=== PATIENT | female | born 1985 | race Caucasian/White ===

== ENCOUNTER 2019-04-28 11:56 | Outpatient (CLI) | payer OTHER ==
[2019-04-28 12:36] LABS: BASOPHILS % (AUTO) 0.5 %; EOSINOPHILS # (AUTO) 0.1 10^3/uL (0.0-0.7); EOSINOPHILS % (AUTO) 1.6 %; HGB - HEMOGLOBIN 13.9 g/dL (12.0-16.0); LYMPHOCYTES # (AUTO) 2.2 10^3/uL (1.5-3.5); LYMPHOCYTES % (AUTO) 27.2 %; MEAN CORPUSCULAR HEMOGLOBIN 29.3 pg (27.0-31.0); MEAN CORPUSCULAR HGB CONC 33.6 g/dL (32.0-36.0); MEAN CORPUSCULAR VOLUME 87.3 fL (81.0-99.0); MEAN PLATELET VOLUME 9.5 fL (7.9-10.8); MONOCYTES # (AUTO) 0.6 10^3/uL (0.0-1.0); MONOCYTES % (AUTO) 7.3 %; NEUTROPHILS # (AUTO) 5.1 10^3/uL (1.5-6.6); NEUTROPHILS % (AUTO) 62.8 %; PLT - PLATELET COUNT 278 10^3/uL (130-450); RED BLOOD COUNT 4.74 10^6/uL (4.20-5.40); RED CELL DISTRIBUTION WIDTH 12.7 % (12.0-15.0); WHITE BLOOD COUNT 8.1 x10^3/uL (4.8-10.8)
== END 2019-04-28 11:57 | disposition home or self-care (01) ==
LOC: LAB 11:56
PROVIDERS: ATTEND Obstetrics & Gynecology
DX: C18.9 Malignant neoplasm of colon, unspecified (principal); Z01.812 Encounter for preprocedural laboratory examination
CPT/HCPCS: 36415; 85025; 86850; 86900; 86901

== ENCOUNTER 2019-04-30 05:49 | Inpatient (IN) | payer OTHER ==
[2019-04-30] MEDS ORDERED: CEFAZOLIN SODIUM IN 0.9 % NACL 2 GM/100 ML BAG IV ONE (06:24)
[2019-04-30] MEDS ORDERED: ACETAMINOPHEN 1,000 MG/100 ML 100 ML IV ONE (06:25)
[2019-04-30 06:52] LABS: HCG UR QUAL NEGATIVE
[2019-04-30] MEDS ORDERED: SCOPOLAMINE PATCH TOP ONE (07:01)
[2019-04-30] MEDS ORDERED: LACTATED RINGERS 1,000 ML IV ONE ×2 (07:09→08:49)
--- NOTE | 2019-04-30 07:15 | ANESTHESIA ---
Pre-Anesthesia VS, & Labs - Diagnosis Bedoya Syndrome - Procedure TLH w/B salpingectomies, cystoscopy Vital Signs: Temp Pulse Resp BP Pulse Ox 36.2 C L 74 18 110/78 100 04/30/19 06:50 04/30/19 06:50 04/30/19 06:50 04/30/19 06:50 04/30/19 06:50 Height 5 ft 7 in Weight (kg) 97.3 kg - NPO >8 hours - Is Patient ?: No - Lab Results Lab results reviewed: Yes Home Medications and Allergies Home Medications: Ambulatory Orders SUMAtriptan [Imitrex] 25 mg PO PRN 04/06/19 SUMAtriptan [Imitrex] 25 mg PO PRN 04/06/19 Allergies/Adverse Reactions: Allergies Allergy/AdvReac Type Severity Reaction Status Date / Time latex Allergy Anaphylaxis Verified 04/06/19 09:40 Anes History & Medical History - Anesthetic History Anesthesia Complications: reports: Post-Operative Nausea/Vomiting (pre-op scope patch ordered) Family history of Anesthesia Complications: Denies Family history of Malignant Hyperthermia: Denies - Medical History Cardiovascular: reports: None Pulmonary: reports: None Gastrointestinal: reports: Other Urinary: reports: None Musculoskeletal: reports: None Endocrine/Autoimmune: reports: None Skin: reports: None - Surgical History Gynecologic: section, Endometrial ablation, Breast reduction Orthopedic: Other Exam General: Alert, Oriented x3, Cooperative Dental: WNL, TMJ Mouth Openin Fingerbreadth Neck Mobility: Normal Mallampati classification: II Thyromental Distance: 4-6 cm Respiratory: Lungs clear, Normal breath sounds, No respiratory distress, No accessory muscle use Cardiovascular: Regular rate Neurological: Normal speech Mental/Cognitive Status: Alert/Oriented X3, Normal for patient Cognitive Status: Within normal limits Plan Anesthesia Type: General Consent for Procedure(s) Verified and Reviewed: Yes Code Status: Attempt Resuscitation ASA classification: 1-Healthy patient Is this case an emergency?: No
[2019-04-30] MEDS ORDERED: BUPIVACAINE 0.25% PF 30 ML VIAL ONE (07:20)
[2019-04-30] MEDS ORDERED: BUPIVACAINE 0.25% PF 30 ML VIAL SUBQ ONE ×2 (08:41)
[2019-04-30] MEDS ORDERED: ONDANSETRON 4 MG/2 ML VIAL IVP PRN (10:53)
[2019-04-30] MEDS: HYDROmorphone 1 MG/ML CARPUJECT ONE ×3 (10:57→11:12)
--- NOTE | 2019-04-30 10:58 | OPERATIVE REPORT ---
Operative Report - General Admit Date: 04/30/19 Procedure Date: 04/30/19 Planned Procedure: total laparoscopic hysterectomy, bilateral salpingectomy, cystoscopy Pre-Op Diagnosis: Bedoya Syndrome Procedure Performed: same as above Post Op Diagnosis: same as above - Procedure Note Primary Surgeon: Marika Acuña Secondary Surgeon: Abhinav Syed Anesthesia Provider: Jim Layne Anesthesia Technique: General ET tube Pathology: uterus with cervix and bilateral fallopian tubes, stitch at 12 o'clock on cervix IV Fluids (mL): 800 Estimated Blood Loss (mL): 75 Urine Output (mL): 300 Indications: Bedoya Syndrome, risk-reducing hysterectomy/salpingectomy after childbearing completed Findings: Normal liver edge and gallbladder. Normal bilateral ovaries and fallopian tubes. Uterus with cervix and bilateral fallopian tubes removed. Cystoscopy with intact bladder mucosa and brisk bilateral ureteral jets. Complications: None - Other Other Information/Narrative: After informed consent was obtained, the patient was taken to the operating room, where general anesthesia was administered without difficulty. Exam under anesthesia performed, revealing a small anteverted uterus and no mass. The patient was prepped and draped in normal sterile fashion in the dorsal lithotomy position. Surgical time out was performed. A speculum was placed in the vagina and the anterior cervix was grasped with a single tooth tenaculum. A single interrupted suture of 0 vicryl was placed in the anterior cervix. The uterus sounded to 4 cm; on multiple attempts, unable to pass sound or dilator through internal os, likely secondary to patient's prior ablation. The [employer] Supervisor uterine manipulator was passed into the cervix and the uterine balloon inflated within the cervix to 5 ml. The colpotomy cup was advanced around the cervix and locked into place after securing to the cervix with the previously placed suture. Baugh catheter was placed into the bladder, draining clear yellow urine. The pneumo-occluder was inflated with 60 mL of air. Attention was directed to the abdomen. After confirming a gastric tube was placed and the bed was flat, 0.25% marcaine was injected at the umbilicus and a 5mm port was inserted through a horizontal skin incision under direct visualization with the laparoscope. The abdomen was partially insufflated with <5mmHg initial insufflation pressure which was increased to achieve complete pneumoperitoneum at 15 mmHg. A survey of the abdominal cavity revealed no bowel injury under the entry site, normal liver edge and gallbladder. The uterus was noted to have a small purple vesicle on the right fundus consistent with endometriosis implant. Normal fallopian tubes were seen. The bilateral ovaries were normal. The ureter was identified and noted to vermiculate on each side. Two lateral 5 mm ports were then placed under direct visualization, one on each side. The left fallopian tube was grasped at the fimbria and elevated; the Ligasure energy device was used to separate the tube from the mesosalpinx to the level of the cornua, were it was transected. The tube was then placed anterior to the uterus. The same procedure was repeated on the right. The right cornua was gently grasped and elevated; the Ligasure energy device was used to divide the round ligament. The anterior leaf of the broad ligament was dissected down and carried anteriorly over the lower uterine segment along the vesicouterine peritoneum to create a bladder flap. This procedure was repeated on the left. Some bleeding was noted on the right at the level of the utero- sacral ligament, this was secured with the Ligasure. The bilateral uterine arteries were then skeletonized and cauterized with the Ligasure. The bladder flap was developed with judicious use of blunt dissection and cautery. Several straight bites along the cervix were taken with the Ligasure on each side to allow the pedicles and ureters to fall away laterally. The colpotomy ring was identified and isolated circumferentially. The bipolar L hook was used to create a colpotomy circumferentially along the top edge of the colpotomy ring. The manipulator was removed along with the uterus and both fallopian tubes. The cuff was closed with a series of figure of eight sutures of 0 vicryl. The vaginal cuff was irrigated and no bleeding was noted. Attention was returned to the abdomen, which was again insufflated to 15mmHg pneumoperitoneum. The suction colorectal surgeon was used to clean clot out of the pelvis. The pressure was taken down to 8 mmHg, and no bleeding was noted from pedicles or areas of dissection. Ports were then removed under laparoscopic visu alization. The abdomen was decompressed. 4-0 monocryl single interrupted sutures were placed in each port site. Dermabond skin adhesive was placed over each port site. Attention was turned to the cystoscopy. The baugh catheter was removed and the 70 degree cystoscope set up and white balanced. Fluids were run through and the cystoscope was gently advanced through the urethra into the bladder. Bilateral ureteral orifices were identified and brisk ureteral jets were visualized bilaterally. Survey of the bladder mucosa revealed no evidence of perforation or stitch from the surgery. The bladder was drained and the cystoscope was removed. Vaginal vault was cleared of all instruments. Lap, instrument, and needle counts were correct x 2. RF scan was performed with no retained RF materials. Pt was awakened from anesthesia and transferred to PACU in stable condition.
[2019-04-30] MEDS: fentaNYL 100 MCG/2 ML VIAL ONE ×2 (11:19→11:28)
[2019-04-30] MEDS ORDERED: ONDANSETRON 4 MG/2 ML VIAL ONE (11:35)
[2019-04-30] MEDS ORDERED: HYDROmorphone 0.5 MG/0.5 ML SYRINGE ONE ×2 (11:36→11:57)
[2019-04-30] MEDS: LACTATED RINGERS 1,000 ML IV SCH ×2 (12:16→21:39)
[2019-04-30] MEDS: IBUPROFEN 800 MG TABLET PO SCH ×2 (12:16→19:44)
[2019-04-30] MEDS: oxyCODONE 5 MG TABLET PO PRN ×3 (13:06→21:41)
[2019-04-30] MEDS ORDERED: MORPHINE 10 MG/ML VIAL IVP PRN (13:30)
[2019-04-30] MEDS: BENZOCAINE/MENTHOL LOZENGE MM PRN ×3 (14:27→21:41)
[2019-04-30] MEDS: ACETAMINOPHEN 500 MG TABLET PO SCH ×2 (14:29→19:44)
[2019-04-30] MEDS: DOCUSATE SODIUM 100 MG CAPSULE PO SCH (20:07)
[2019-05-01] MEDS: ACETAMINOPHEN 500 MG TABLET PO SCH ×2 (01:46→08:06)
[2019-05-01] MEDS: BENZOCAINE/MENTHOL LOZENGE MM PRN ×2 (01:46→08:06)
[2019-05-01] MEDS: oxyCODONE 5 MG TABLET PO PRN ×2 (01:51→08:06)
[2019-05-01] MEDS: IBUPROFEN 800 MG TABLET PO SCH ×2 (03:40→11:12)
[2019-05-01 05:15] LABS: BASOPHILS % (AUTO) 0.2 %; EOSINOPHILS # (AUTO) 0.1 10^3/uL (0.0-0.7); EOSINOPHILS % (AUTO) 1.1 %; HGB - HEMOGLOBIN 11.1 g/dL (12.0-16.0); LYMPHOCYTES # (AUTO) 2.6 10^3/uL (1.5-3.5); LYMPHOCYTES % (AUTO) 28.1 %; MEAN CORPUSCULAR HEMOGLOBIN 28.8 pg (27.0-31.0); MEAN CORPUSCULAR HGB CONC 32.3 g/dL (32.0-36.0); MEAN CORPUSCULAR VOLUME 89.1 fL (81.0-99.0); MEAN PLATELET VOLUME 9.8 fL (7.9-10.8); MONOCYTES # (AUTO) 0.7 10^3/uL (0.0-1.0); NEUTROPHILS # (AUTO) 5.9 10^3/uL (1.5-6.6); NEUTROPHILS % (AUTO) 63.2 %; PLT - PLATELET COUNT 245 10^3/uL (130-450); RED BLOOD COUNT 3.86 10^6/uL (4.20-5.40); WHITE BLOOD COUNT 9.3 x10^3/uL (4.8-10.8)
--- NOTE | 2019-05-01 07:11 | PROVIDER PROGRESS NOTE ---
Subjective - Prog Note Date Prog Note Date: 05/01/19 Prog Note Time: 07:08 - Subjective Pt reports feeling: Improved Subjective: Doing well with no acute complaints. Reports pain currently 5/10 but responds well to medication. No vaginal bleeding or discharge. Ambulating without difficulty. Voiding spontaneously. Passing flatus, no BM yet. Tolerated soft diet only yesterday due to throat pain; improving with cepacol and hungry this AM. No n/v. Using ICS, denies any cough, SOB, or CP. No other acute concerns. Objective - Vital Signs/Intake & Output Vital Signs: Vital Signs x48h Temp Pulse Resp BP Pulse Ox 05/01/19 04:13 98.2 F 57 L 16 96/49 L 95 05/01/19 00:45 98.2 F 71 16 98/57 L 96 Intake & Output: Intake & Output 04/28/19 04/29/19 04/30/19 05/01/19 23:59 23:59 23:59 23:59 Intake Total 3540 500 Output Total 2375 1700 Balance 1165 -1200 - Objective General Appearance: positive: No acute distress, Alert Abdomen: positive: Non-tender, Other (soft, nondistended. Incision sites c/d/i, covered with skin adhesive.) Skin: positive: Color nml, No rash Extremities: positive: Non-tender Neurologic/Psychiatric: positive: Oriented x3 - Lab Results Fish Bones: 05/01/19 04:37 Other Labs: Lab Results x24hrs 05/01/19 04/30/19 04/30/19 Range/Units 04:37 10:48 09:00 WBC 9.3 (4.8-10.8) x10^3/uL RBC 3.86 L (4.20-5.40) 10^6/uL Hgb 11.1 L (12.0-16.0) g/dL Hct 34.4 L (37.0-47.0) % MCV 89.1 (81.0-99.0) fL MCH 28.8 (27.0-31.0) pg MCHC 32.3 (32.0-36.0) g/dL RDW 13.0 (12.0-15.0) % Plt Count 245 (130-450) 10^3/uL MPV 9.8 (7.9-10.8) fL Neut # (Auto) 5.9 (1.5-6.6) 10^3/uL Lymph # (Auto) 2.6 (1.5-3.5) 10^3/uL Cook # (Auto) 0.7 (0.0-1.0) 10^3/uL Eos # (Auto) 0.1 (0.0-0.7) 10^3/uL Baso # (Auto) 0.0 (0.0-0.1) 10^3/uL Absolute Nucleated RBC 0.00 x10^3/uL Nucleated RBC % 0.0 /100WBC Blood Type O POSITIVE Blood Type Recheck O POSITIVE Antibody Screen NEGATIVE Assessment/Plan - Problem List (1) Absence of both cervix and uterus, acquired Impression: 33 yo POD#1 s/p TLH/BS/cysto recovering well. VS wnl, UOP 2.4 ml/kg/h overnight. Exam benign. Hct 34 postop. -Encouraged increased oral intake this AM -Dispo. Home this AM after breakfast. Rvwd recovery plan, follow up plan and reasons to seek urgent care.
--- NOTE | 2019-05-01 07:15 | DISCHARGE SUMMARY ---
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 - CONSULTS | PROCEDURES Consultations: Anesthesia Procedures: 1. Total laparoscopic hysterectomy with bilateral salpingectomy 2. Cystourethroscopy - HOSPITAL COURSE Hospital Course: Admitted for planned surgery and underwent uncomplicated total laparoscopic hysterectomy with bilateral salpingectomy and cystoscopy. Cunningham catheter removed post-op day #0 and pt voided spontaneously. At time of discharge, she was ambulating, tolerating regular diet and pain was well controlled with oral medication. She was discharged home with close interval follow up. - ALLERGIES Allergies/Adverse Reactions: Allergies Allergy/AdvReac Type Severity Reaction Status Date / Time latex Allergy Anaphylaxis Verified 04/06/19 09:40 - MEDICATIONS Home Medications: Ambulatory Orders Medication Instructions Recorded Confirmed SUMAtriptan [Imitrex] 25 mg PO PRN 04/06/19 Home Medications Other | Comments: 1. Ibuprofen 800 mg 1 tab by mouth every 8 hours 2. Tylenol 325 mg 3 tabs by mouth every 6 hours 3. Roxicodone 5 mg 1-2 tabs by mouth every 4 hours as needed for pain 4. Surfak 240 mg 1 cap by mouth twice daily - PHYSICAL EXAM AT DISCHARGE General Appearance: positive: No acute distress (See progress note for full exam day of discharge) - LABS Result Diagrams: 05/01/19 04:37 - QUALITY (Female Hip Fx Only) Was patient sent home on osteoporosis medication?: No - FOLLOW UP Follow Up: Follow up at [facility] with Dr. Acuña as scheduled 19DEC - TIME SPENT Time Spent in Discharge (Minutes): 30"
[2019-05-01] MEDS: DOCUSATE SODIUM 100 MG CAPSULE PO SCH (08:06)
--- NOTE | 2019-05-01 10:40 | PROVIDER PROGRESS NOTE ---
Subjective - Prog Note Date Prog Note Date: 04/30/19 Prog Note Time: 10:30 Objective - Vital Signs/Intake & Output Vital Signs: Vital Signs x48h Temp Pulse Resp BP Pulse Ox 05/01/19 08:00 98.2 F 68 16 101/56 L 96 05/01/19 04:13 98.2 F 57 L 16 96/49 L 95 Intake & Output: Intake & Output 04/28/19 04/29/19 04/30/19 05/01/19 23:59 23:59 23:59 23:59 Intake Total 3540 1500 Output Total 2375 1700 Balance 1165 -200 - Lab Results Fish Bones: 05/01/19 04:37 Other Labs: Lab Results x24hrs 05/01/19 04/30/19 04/30/19 Range/Units 04:37 10:48 09:00 WBC 9.3 (4.8-10.8) x10^3/uL RBC 3.86 L (4.20-5.40) 10^6/uL Hgb 11.1 L (12.0-16.0) g/dL Hct 34.4 L (37.0-47.0) % MCV 89.1 (81.0-99.0) fL MCH 28.8 (27.0-31.0) pg MCHC 32.3 (32.0-36.0) g/dL RDW 13.0 (12.0-15.0) % Plt Count 245 (130-450) 10^3/uL MPV 9.8 (7.9-10.8) fL Neut # (Auto) 5.9 (1.5-6.6) 10^3/uL Lymph # (Auto) 2.6 (1.5-3.5) 10^3/uL Lares # (Auto) 0.7 (0.0-1.0) 10^3/uL Eos # (Auto) 0.1 (0.0-0.7) 10^3/uL Baso # (Auto) 0.0 (0.0-0.1) 10^3/uL Absolute Nucleated RBC 0.00 x10^3/uL Nucleated RBC % 0.0 /100WBC Blood Type O POSITIVE Blood Type Recheck O POSITIVE Antibody Screen NEGATIVE Assessment/Plan - Problem List (1) Absence of both cervix and uterus, acquired Impression: Note entered at request of medical records, not clinical note. "The patient will be discharged or transferred within 96 hours".
[2019-05-01] MEDS ORDERED: DEXAMETHASONE 4 MG/ML VIAL IVP ONE (11:26)
[2019-05-01] MEDS ORDERED: fentaNYL 100 MCG/2 ML VIAL IVP ONE (11:26)
[2019-05-01] MEDS ORDERED: ePHEDrine 50 MG/ML VIAL IVP ONE (11:26)
[2019-05-01] MEDS ORDERED: SEVOFLURANE 250 ML LIQUID INH ONE (11:26)
[2019-05-01] MEDS ORDERED: ROCURONIUM 50 MG/5 ML VIAL IVP ONE (11:26)
[2019-05-01] MEDS ORDERED: MIDAZOLAM 2 MG/2 ML VIAL IVP ONE (11:26)
[2019-05-01] MEDS ORDERED: NEOSTIGMINE 1 MG/1 ML 10 ML MDV IVP ONE (11:26)
[2019-05-01] MEDS ORDERED: PROPOFOL 200 MG/20 ML VIAL IVP ONE (11:26)
[2019-05-01] MEDS ORDERED: GLYCOPYRROLATE 1 MG/5 ML VIAL IVP ONE (11:26)
[2019-05-01] MEDS ORDERED: ONDANSETRON 4 MG/2 ML VIAL IVP ONE (11:26)
[2019-05-01 11:55] VITALS: BP 95/54
== END 2019-05-01 13:24 | disposition home or self-care (01) | DRG 941 ==
LOC: MS2 05:49
PROVIDERS: ADMIT Obstetrics & Gynecology; ATTEND Obstetrics & Gynecology
PROC: 0UT7FZZ Resection of Bilateral Fallopian Tubes, Via Natural or Artificial Opening With Percutaneous Endoscopic Assistance (ICD-10-PCS; 2019-04-30)
PROC: 0UT9FZZ Resection of Uterus, Via Natural or Artificial Opening With Percutaneous Endoscopic Assistance (ICD-10-PCS; principal; 2019-04-30 07:30)
DX: Z40.09 Encounter for prophylactic removal of other organ (principal); Z15.09 Genetic susceptibility to other malignant neoplasm; Z68.37 Body mass index [BMI] 37.0-37.9, adult; E66.01 Morbid (severe) obesity due to excess calories; F41.9 Anxiety disorder, unspecified; F32.9 Major depressive disorder, single episode, unspecified; F43.10 Post-traumatic stress disorder, unspecified
CPT/HCPCS: 36415; 81025; 85025; 86850; 86900; 86901

== ENCOUNTER 2020-09-08 09:43 | Emergency (ER) | payer OTHER ==
[2020-09-08 09:56] VITALS: BP 143/92
--- NOTE | 2020-09-08 11:02 | ED Physician Documentation ---
History of Present Illness - Stated complaint Stated Complaint: RT FOOT PX - Chief complaint Chief Complaint: Fever - History obtained from History obtained from: Patient - Additonal information Additional information: Patient comes emergency department chief complaint of painful lesion on sole of R foot. The patient states that about 2 days ago, she noticed what she thought was a bug bite on the sole of her foot right foot. She states it was somewhat painful and that she is not sure how she got it. She states that over the course of the last couple of days, the lesion has turned into a small, circular- appearing area of erythema with central clearing. She states she also noticed something similar developing on the dorsum of the same foot and then noticed the same sort of erythema on the other foot near the toes but without the distinct annular appearance. Patient denies any fevers or chills. No nausea or vomiting. No fatigue. The patient states that she has chronic lymphedema ever since having a hysterectomy done, and wears support hose every day. She states she very recently received some prescription strength support hose, which she wears [id number]. She has been outside gardening, but states that she was wearing her support hose, socks, and shoes while doing so. Patient does not feel that there has been anything in her shoes that has been poking the bottom of her foot. She denies any sense of anything being in her sock that could have been punctured the sole of her foot. The only time patient had her feet exposed was while sleeping at night. Patient is not on any medications. She is otherwise fairly healthy. No other complaints at this time. The patient states that she came here because she has been in physical therapy for another issue and when she went there she states that it was difficult to stand on the foot because it hurt. She states the physical therapist took a look and told her to come to the emergency department because she may have an infection. Patient states she has tried both hydrocortisone cream and antifungal creams and neither one seems to be improving the lesions at all. Review of Systems Ten Systems: 10 systems reviewed and negative Constitutional: reports: Reviewed and negative Eyes: reports: Reviewed and negative Ears: reports: Reviewed and negative Nose: reports: Reviewed and negative Throat: reports: Reviewed and negative Cardiac: reports: Reviewed and negative Respiratory: reports: Reviewed and negative GI: reports: Reviewed and negative : reports: Reviewed and negative Skin: reports: Lesions Musculoskeletal: reports: Reviewed and negative Neurologic: reports: Reviewed and negative Psychiatric: reports: Reviewed and negative Endocrine: reports: Reviewed and negative Immunocompromised: reports: Reviewed and negative PD PAST MEDICAL HISTORY - Past Medical History Cardiovascular: None Respiratory: None Endocrine/Autoimmune: None GI: Other : None HEENT: None Psych: Post traumatic stress disorder Musculoskeletal: None Derm: None Other Past Medical History: lymphedema bilateral lower leg - Past Surgical History Ortho: Other /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, Endometrial ablation, Hysterectomy, Breast reduction - Present Medications Home Medications: Ambulatory Orders Medication Instructions Recorded Confirmed SUMAtriptan [Imitrex] 25 mg PO DAILY PRN 04/06/19 09/08/20 - Allergies Allergies/Adverse Reactions: Allergies Allergy/AdvReac Type Severity Reaction Status Date / Time latex Allergy Anaphylaxis Verified 09/08/20 09:51 - Social History Does the pt smoke?: No Smoking Status: Never smoker Does the pt drink ETOH?: Yes Does the pt have substance abuse?: No PD ED PE NORMAL - Vitals Vital signs reviewed: Yes - General General: Alert and oriented X 3, No acute distress, Well developed/nourished - HEENT HEENT: Atraumatic, PERRL, EOMI, Moist mucous membranes - Neck Neck: Supple, no meningeal sign - Cardiac Cardiac: Strong equal pulses - Respiratory Respiratory: No respiratory distress - Derm Derm: Normal color, Warm and dry, Other (Approximately 12 mm, flat, nonblanching, deep red annular marking on plantar surface of right midfoot. No scaling. No induration or fluctuance. No obvious foreign body or nidus. No associated erythema. Mild tenderness. Similar single lesion on distal dorsi both feet, though L not annular.) - Extremities Extremities: No deformity, Other (Moderate nonpitting edema bilaterally.) - Neuro Neuro: Alert and oriented X 3 - Psych Psych: Normal mood, Normal affect Results - Vitals Vitals: Vital Signs - 24 hr 09/08/20 09:51 Temperature 37.3 C Heart Rate 85 Respiratory 18 Rate Blood Pressure 143/92 H O2 Saturation 98 Oxygen O2 Source Room air PD MEDICAL DECISION MAKING - ED course Complexity details: considered differential, d/w patient ED course: I discussed with the patient that it was not really sure what was causing her lesions. It is possible that she had some sort of insect/spider envenomation while sleeping, but it is difficult to say. Patient did not have any lesions anywhere else besides 3 on her feet, and had no associated constitutional symptoms. Additionally, her feet had been covered most of the time and she could not recall any specific injury or other event involving the feet. Furthermore, she is not on any medications that would be expected to cause any sort of reaction. The likelihood of tick bite is extremely low, given that the patient has been outside only in multiple foot coverings. I have not found any evidence of an emergent condition today. I discussed with the patient most likely, these lesions will go away on their own. I did not find evidence of cellulitis, nor are there any other skin changes such as induration, edema, or fluctuance, to suggest any sort of deeper infectious process. We have discussed the need for follow-up and the usual indications for return. Departure - Departure Disposition: 01 Home, Self Care Clinical Impression: Rash and nonspecific skin eruption Condition: Stable Instructions: ED Dermatitis Non Specific Rash, ED Bite Sting Insect Local Allergic React Comments: It is not clear what has caused her nonspecific skin markings; however, there is no evidence of a bacterial infection at this time. Please do Epsom salt soaks in hot water and continue to wear your pressure stockings as you can tolerate. Most likely, this rash will go away on its own. There is no evidence of an emergent or serious cause at this time. Discharge Date/Time: 09/08/20 11:18
== END 2020-09-08 11:18 | disposition home or self-care (01) ==
LOC: ED 09:43
DX: R21 Rash and other nonspecific skin eruption (principal); I97.89 Other postprocedural complications and disorders of the circulatory system, not elsewhere classified; I89.0 Lymphedema, not elsewhere classified; Z90.710 Acquired absence of both cervix and uterus
CPT/HCPCS: 99281; 99282

== ENCOUNTER 2021-01-28 22:54 | Emergency (ER) | payer OTHER ==
[2021-01-28] MEDS ORDERED: ONDANSETRON ODT 4 MG TABLET TL STA (23:28)
[2021-01-28] MEDS ORDERED: HYDROcod/ACETAM 5/325 MG TABLET PO STA (23:28)
[2021-01-28] MEDS ORDERED: KETOROLAC 30 MG/ML VIAL IM STA (23:28)
--- NOTE | 2021-01-28 23:28 | ED Physician Documentation ---
PD HPI HEENT - Stated complaint Stated Complaint: POST C19 SHOT, SWOLEN THROAT, HEADACHE - Chief complaint Chief Complaint: Heent - History obtained from History obtained from: Patient - History of Present Illness Timing - onset: How many hours ago (about 10 hours ago (just couple of hours after her J&J vaccine).), Today Timing - details: Abrupt onset (She got her J&J vaccine this morning and within 2 to 3 hours started feeling fever, aches, neck adenopathy and some headache. She denies wheezing, hives, intraoral swelling.) Improves: Other (She has not taken any medications as yet, unsure if any would interact with the vaccine.) Associated symptoms: Fever, Swollen nodes, Headache, Other (muscle aches). No: Facial swelling, Cough Similar symptoms before: Has not had sx before Recently seen: Other (COVID Vaccine this morning) Review of Systems Constitutional: reports: Fever, Myalgias, Fatigue Nose: denies: Rhinorrhea / runny nose, Congestion Throat: denies: Sore throat Respiratory: denies: Cough GI: reports: Nausea. denies: Vomiting, Diarrhea Skin: denies: Rash, Lesions Neurologic: reports: Generalized weakness. 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, Endometrial ablation, Hysterectomy, Breast reduction - Present Medications Home Medications: Ambulatory Orders Medication Instructions Recorded Confirmed SUMAtriptan [Imitrex] 25 mg PO DAILY PRN 04/06/19 01/28/21 Ibuprofen [Motrin] 600 mg PO TID PRN #15 tab 01/28/21 Ondansetron Odt [Zofran] 4 mg TL Q6H PRN #10 tablet 01/28/21 - Allergies Allergies/Adverse Reactions: Allergies Allergy/AdvReac Type Severity Reaction Status Date / Time latex Allergy Anaphylaxis Verified 01/28/21 23:08 - Social History Does the pt smoke?: No Smoking Status: Never smoker Does the pt drink ETOH?: Yes Does the pt have substance abuse?: No - Immunizations Immunizations are current?: No - POLST Patient has POLST: No PD ED PE NORMAL - Vitals Vital signs reviewed: Yes - General General: Alert and oriented X 3, No acute distress, Well developed/nourished - HEENT HEENT: Moist mucous membranes, Pharynx benign - Neck Neck: Supple, no meningeal sign, Other (anterior adenopathy both sides, somewhat tender. ) - Cardiac Cardiac: RRR, No murmur - Respiratory Respiratory: Clear bilaterally - Abdomen Abdomen: Soft, Non tender - Derm Derm: Normal color, Warm and dry, No rash - Neuro Neuro: Alert and oriented X 3, No motor deficit, Normal speech Results - Vitals Vitals: Vital Signs - 24 hr 01/28/21 01/28/21 23:06 23:56 Temperature 36.4 C L 36.5 C Heart Rate 74 72 Respiratory 16 16 Rate Blood Pressure 120/98 H 118/89 H O2 Saturation 98 98 Oxygen O2 Source Room air PD MEDICAL DECISION MAKING - ED course Complexity details: considered differential (not allergic reaction but strong immune response with cervical adenopathy, myalgias. No hives nor rash. No intraoral swelling. ), d/w patient Departure - Departure Disposition: 01 Home, Self Care Clinical Impression: COVID-19 vaccine administered, Muscle pain Condition: Stable Record reviewed to determine appropriate education?: Yes Follow-Up: JENNIF[facility] Calles [Provider Group] Prescriptions: Ibuprofen [Motrin] 600 mg PO TID PRN #15 tab PRN Reason: Pain Ondansetron Odt [Zofran] 4 mg TL Q6H PRN #10 tablet PRN Reason: Nausea / Vomiting Comments: Sounds like a good immune response to your vaccine. I would presume symptoms for a day or 2. Use anti-inflammatory such as ibuprofen 3 times a day with food. Add Tylenol if needed for pains. Ondansetron if needed for nausea. Off work for a day or 2 if needed for symptoms. Follow-up with your primary care if not improved well over the next few days. Forms: Activity restrictions Discharge Date/Time: 01/28/21 23:57
[2021-01-28 23:57] VITALS: BP 118/89
== END 2021-01-28 23:57 | disposition home or self-care (01) ==
LOC: ED 22:54
DX: M79.10 Myalgia, unspecified site (principal); R59.0 Localized enlarged lymph nodes; T50.B95A Adverse effect of other viral vaccines, initial encounter
CPT/HCPCS: 99283; A9270; Q0162

== ENCOUNTER 2021-04-29 07:36 | Outpatient (CLI) | payer OTHER | END 2021-04-29 07:37 | disposition home or self-care (01) | LOC: DI 07:36 | PROVIDERS: ATTEND Family Medicine | DX: R60.9 Edema, unspecified (principal); I51.7 Cardiomegaly; I87.8 Other specified disorders of veins | CPT/HCPCS: 93306 ==

== ENCOUNTER 2022-08-13 13:02 | Outpatient (CLI) | payer OTHER ==
--- NOTE | 2022-08-13 13:56 | SLEEP CARE CONSULTATION ---
Information from patient questionnaire entered by Madelin Garcia. I have reviewed and concur with the information entered by Madelin Garcia. This document represents the service I personally performed and the decisions made by me, Rosy Delgado ARNP. History of Present Illness Service Date and Time: 08/13/2022 1302 Reason for Visit: New patient, Previously diagnosed sleep apnea Chief Complaint: reports: Unrefreshed sleep, Snoring, Excessive daytime sleepiness, Fatigue Date of Onset: 11YRS AGO Usual bedtime: 8-830 pm Time it takes to fall asleep: ABOUT AN HR, sometimes; other times it is out quickly Snores at night: Yes Observed to quit breathing while asleep: Yes Sleeps alone due to snoring: No Number of times waking at night: NOT SURE Reasons for waking at night: reports: Snoring. denies: Choking, Gasping for air Toss, Turn, or Twitch while sleeping: Yes Recalls having dreams: No (she has not dreamed in "over a decade") Usually gets out of bed at: 6528-1252 depending on day Feels refreshed in the morning: No Morning headache: Yes (most days; hx of migraines) Sleepy or fatigued during the day: Yes (will fall asleep when sitting quietly) Ever fallen asleep while driving: Yes (drowsy driving; no accidents; she won't drive far) Takes day naps: No Prior sleep studies: Yes Year and Where: HOME 2 DAY STUDY BY [facility]; 01/2022 Additional HPI information: GLADYS WOOD was previously diagnosed to have moderate, AHI 26.6, obstructive sleep apnea-hypopnea syndrome and comes in today to establish care. [facility]. 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 Patient is and lives in [place]. Have you smoked in the past 12 months: No Alcohol use: No Caffeine use: Yes Caffeine amount and frequency: 1-2 DAILY Family History Family history of sleep disordered breathing: Yes Family Hx Sleep Apnea: Sibling: Snoring, Sleep apnea - Untreated Allergies and Home Medications Known drug allergies: No Drug allergies reviewed: Yes Home medication list reviewed: Yes Allergy and home medication list: Allergies latex Allergy (Verified 08/12/22 14:11) Anaphylaxis Medications: Lyrica Methylprednisone pack for 2 weeks Flexeril, 2 weeks only Review of Systems Weight gain over past 5 years: 95 (last 3 years) Cardiovascular: reports: leg or foot swelling. denies: high blood pressure Gastrointestinal: reports: heartburn, diarrhea Neurological: reports: headaches Psychiatric: reports: anxiety, depression, other (PTSD) Ear/Nose/Throat: reports: sinus problems, wisdom teeth removed. denies: tonsillectomy Endocrine: reports: sluggishness, unexplained weakness Musculoskeletal: reports: joint pain, neck pain, back pain, muscle pain or cramping Physical Exam Vital signs obtained and entered by: MADELIN Senior MA Blood Pressure: 136/82 (LEFT ARM) Cuff size: long Heart Rate: 74 O2 Saturation: 96 Height: 5 ft 7.5 in Weight: 284 lb 12.8 oz Body Mass Index: 43.9 BMI Classification: Morbidly Obese Neck circumference: 19 Mouth and throat: narrow oropharynx Soft palate: long Hard palate: normal Uvula: normal Uvula visualization: 25% Mallampati Class III Tongue: enlarged in size with teeth nicholas on lateral edges Tonsils: small Neck: normal w/o lymphadenopathy or thyromegaly Heart: regular rate and rhythm Lungs: clear bilaterally Impression and Plan 1. Obstructive Sleep Apnea-Hypopnea Syndrome, moderate, with lowest oxygen saturation of 72%. Patient had a previous sleep study done in January 2022 which showed moderate obstructive sleep apnea through an HST by [facility]. I will go ahead and start her on CPAP therapy after discussion of possible therapies with patient. Positive pressure therapy could benefit arrhythmia, depression, anxiety, fibromyalgia and PTSD. The patient will be started on nasal autoCPAP therapy with pressure set at 4-15 cmH2O. A manual titration study will be completed if unable to find optimal treatment pressure with office adjustments. Compliance guidelines also reviewed. A copy of compliance guidelines will be given for reference at check out. * Nasal auto CPAP therapy, pressure at 4-15 cm H2O. * Attempt to lose weight. * Avoid alcohol consumption near bedtime. * Avoid supine sleep until using CPAP. * The patient is again cautioned about driving until sleepiness completely resolves. * Return one month after CPAP obtained. I will assess response to therapy and compliance at that time. Counseling Topics: Weight loss health impact Visit Type: In Office Time Spent with Patient (minutes): 31 Provider Statement: I spent 100% of the Face to Face Visit with the patient with greater than 50% spent counseling the patient and coordination of care.
[2022-08-13 13:57] VITALS: BP 136/82
== END 2022-08-13 13:03 | disposition home or self-care (01) ==
LOC: SC 13:02
PROVIDERS: ATTEND Nurse Practitioner Family
DX: G47.33 Obstructive sleep apnea (adult) (pediatric) (principal); E66.01 Morbid (severe) obesity due to excess calories; Z68.41 Body mass index [BMI] 40.0-44.9, adult
CPT/HCPCS: 99203; 99212